=== PATIENT | male | born 1975 | race Caucasian/White ===

== ENCOUNTER 2019-04-17 13:01 | Emergency (ER) | payer BC ==
--- NOTE | 2019-04-17 13:06 | UC ---
Laceration HPI - HPI Summary HPI Summary: 43 yo male presents with scalp laceration. He tells me that 20 min [employer] he was at home and stood up with an open wooden cabinet door above his head and hit his head on this. No LOC. Sustained a small scalp puncture wound. He applied pressure and came to . He is unsure the date of his last tetanus. No headache , dizziness, vision changes, nausea, vomiting. - History Of Current Complaint Stated Complaint: head LACERATION Time Seen by Provider: 04/17/19 13:06 Hx Obtained From: Patient Laceration Location: Head Mechanism Of Injury: Blunt Trauma Onset/Duration: Sudden Onset Severity: Mild Pain Intensity: 2 Pain Scale Used: 0-10 Numeric - Allergies/Home Medications Allergies/Adverse Reactions: Allergies Allergy/AdvReac Type Severity Reaction Status Date / Time No Known Allergies Allergy Verified 04/17/19 13:13 PMH/Surg Hx/FS Hx/Imm Hx - Additional Past Medical History Additional PMH: None - Surgical History Surgical History: None - Family History Known Family History: Positive: Non-Contributory - Social History Occupation: Employed Full-time Lives: With Family Alcohol Use: Occasionally Substance Use Type: None Smoking Status (MU): Never Smoked Tobacco Review of Systems All Other Systems Reviewed And Are Negative: No Constitutional: Positive: Negative Skin: Positive: Other - Scalp puncture wound Respiratory: Positive: Negative Cardiovascular: Positive: Negative Neurovascular: Positive: Negative Neurological: Positive: Negative Psychological: Positive: Negative Physical Exam - Summary Physical Exam Summary: GENERAL: NAD. WDWN. No pain distress. SKIN: Parietal scalp with 2mm puncture wound with scant bleeding. Mild TTP. CHEST: No accessory muscle use. Breathing comfortably and in no distress. CV: Pulses intact. Cap refill <2seconds NEURO: Alert. PSYCH: Age appropriate behavior. Triage Information Reviewed: Yes Vital Signs: Vital Signs: Temp Pulse Resp BP Pulse Ox 98.1 F 58 18 128/77 100 04/17/19 13:07 04/17/19 13:07 04/17/19 13:07 04/17/19 13:07 04/17/19 13:07 Vital Signs Reviewed: Yes Laceration Repair - Laceration Repair 1 Description: Stellate Laceration Size After Repair: Length (cm) - 0.2 Modified For Repair: No Cleansing Completed Via Routine Prep: Yes Closure Material: Skin Adhesive Closure Method: Single Layer Suture Of: Skin Laceration Course/Dx - Course/Dx Course Of Treatment: Wound was cleansed with saline. tdap updated. Well approximated at rest, therefore dermabond was applied. - Diagnosis Provider Diagnosis: Puncture wound of scalp Discharge ED - Sign-Out/Discharge Documenting (check all that apply): Patient Departure All imaging exams completed and their final reports reviewed: No Studies - Discharge Plan Condition: Stable Disposition: HOME Patient Education Materials: Laceration (ED), Skin Adhesive Care (ED) Referrals: Melony Swenson MD [Primary Care Provider] - Additional Instructions: If you develop a fever, shortness of breath, chest pain, new or worsening symptoms - please call your PCP or go to the ED immediately. Do not wash your hair tonight, but may tomorrow morning. Be careful not to scrub the area too hard for 3-4 days until well healed - Billing Disposition and Condition Condition: STABLE Disposition: Home
[2019-04-17] MEDS ORDERED: Tetan/Diph/Pertus SYR(Tdap)* 0.5 ML SYR(BOOSTRIX) use SYR contains LATEX IM ONE (13:12)
[2019-04-17 13:13] VITALS: BP 128/77
== END 2019-04-17 13:46 | disposition home or self-care (01) ==
LOC: UCEAST 13:01
DX: S01.03XA Puncture wound without foreign body of scalp, initial encounter (principal); W22.8XXA Striking against or struck by other objects, initial encounter; Y92.009 Unspecified place in unspecified non-institutional (private) residence as the place of occurrence of the external cause
CPT/HCPCS: 12001; 90715; 99211; G0463